=== PATIENT | male | born 1960 | race Hispanic/Latino ===

== ENCOUNTER → 2022-12-19 | Outpatient (CLI) | payer MEDICAID | END | disposition home or self-care (01) | LOC: RAH 07:33 | PROVIDERS: ATTEND Internal Medicine Medical Oncology | DX: R16.2 Hepatomegaly with splenomegaly, not elsewhere classified (principal); D61.818 Other pancytopenia | CPT/HCPCS: 76700 ==

== ENCOUNTER → 2023-02-10 | Outpatient (CLI) | payer MEDICAID ==
[2023-02-10 22:19] VITALS: PULSE 90; RESP 18
[2023-02-10 23:00] VITALS: PULSE 88; RESP 10
[2023-02-10 23:30] VITALS: PULSE 86; RESP 20
[2023-02-11] VITALS (10 sets, daily range): PULSE 84–98; RESP 16–22
== END | disposition home or self-care (01) ==
LOC: SLP 20:30
PROVIDERS: ATTEND Internal Medicine
DX: G47.33 Obstructive sleep apnea (adult) (pediatric) (principal)
CPT/HCPCS: 95810

== ENCOUNTER → 2023-02-27 | Outpatient (CLI) | payer MEDICAID | END | disposition home or self-care (01) | LOC: SHCH 10:58 | PROVIDERS: ATTEND Internal Medicine | DX: I08.0 Rheumatic disorders of both mitral and aortic valves (principal); I10 Essential (primary) hypertension | CPT/HCPCS: 93306 ==